=== PATIENT | male | born 1985 | race Caucasian/White ===

== ENCOUNTER → 2020-08-12 | Outpatient (CLI) | payer BC | LOC: LABNPT 08:41 | PROVIDERS: ATTEND Internal Medicine | DX: Z20.828 Contact with and (suspected) exposure to other viral communicable diseases (principal) | CPT/HCPCS: 87635 ==

== ENCOUNTER → 2020-08-18 | Outpatient (CLI) | payer BC | LOC: LABNPT 08:16 | PROVIDERS: ATTEND Internal Medicine | DX: J02.9 Acute pharyngitis, unspecified (principal); Z53.9 Procedure and treatment not carried out, unspecified reason ==